=== PATIENT | male | born 1950 | race Caucasian/White ===

== ENCOUNTER 2018-04-23 10:32 | Inpatient (IN) | payer MEDICARE ==
[~2018-04-23] VITALS: Ht 195.6 cm; Wt 104.0 kg
[~2018-04-23 10:32] MED LIST: "\\\"BP PILL\\\""; BUPR100T4 PO; CARI350T PO; FLO0.4C PO; GLIP10TA11 PO; HYDR-4383 PO; METF500T7 PO; [UNRECOGNIZED DRUG - REMARK]
[2018-04-23 10:53] LABS: BASOPHILS % (AUTO) 0.5 % (0-1); EOSINOPHILS # (AUTO) 0.1 X10'3 (0-0.9); EOSINOPHILS % (AUTO) 1.6 % (0-6); HEMATOCRIT 51.8 % (42.0-52.0); HEMOGLOBIN 17.3 g/dl (14.0-17.9); LYMPHOCYTES # (AUTO) 2.1 X10'3 (1.1-4.8); LYMPHOCYTES % (AUTO) 26.2 % (21-51); MEAN CORPUSCULAR HEMOGLOBIN 29.4 PG (27.0-31.0); MEAN CORPUSCULAR HGB CONC 33.3 % (33.0-36.5); MEAN CORPUSCULAR VOLUME 88.3 FL (78-98); MEAN PLATELET VOLUME 8.6 FL (7.4-10.4); MONOCYTES # (AUTO) 0.7 X10'3 (0-0.9); MONOCYTES % (AUTO) 8.4 % (2-12); NEUTROPHILS % (AUTO) 63.3 % (42-75); PLATELET COUNT 312 X10'3 (140-440); RED BLOOD COUNT 5.87 X10'6 (4.70-6.10); RED CELL DISTRIBUTION WIDTH 13.1 % (11.5-14.5); WHITE BLOOD COUNT 7.9 X10'3 (4.5-11.0)
[2018-04-23 11:05] LABS: PARTIAL THROMBOPLASTIN TIME 29 SECONDS (22-32); PROTHROMBIN TIME 10.1 SECONDS (9.0-12.0)
[2018-04-23 11:06] LABS: ALANINE AMINOTRANSFERASE 32 U/L (12-78); ALBUMIN 4.1 G/DL (3.4-5.0); ALBUMIN/GLOBULIN RATIO 1.1 (1.1-1.5); ALKALINE PHOSPHATASE 114 IU/L (46-116); ANION GAP 11 (8-16); ASPARTATE AMINO TRANSFERASE 20 U/L (10-37); BILIRUBIN,TOTAL 0.5 MG/DL (0.1-1.0); BLOOD UREA NITROGEN 15 MG/DL (7-18); BUN/CREATININE RATIO 11.9 (5.4-32.0); CHLORIDE 100 MMOL/L (99-107); CREATININE 1.26 MG/DL (0.60-1.10); GLUCOSE 303 MG/DL (70-104); SODIUM 136 MMOL/L (135-145); TOTAL CARBON DIOXIDE 24.8 MMOL/L (24-32); TOTAL PROTEIN 7.9 G/DL (6.4-8.2); eGFR 57 ML/MIN
[2018-04-23 11:09] LABS: TROPONIN I < 0.04 NG/ML (0.0-0.05)
[2018-04-23] MEDS ORDERED: aspirin 325mg tablet PO ONE (11:10)
[2018-04-23] MEDS ORDERED: magnesium Cl slow-release 64mg tablet PO PRN (13:40)
[2018-04-23] MEDS ORDERED: MESSAGE TO PHARMACY PO ONE (13:40)
[2018-04-23] MEDS ORDERED: potassium Cl 20 mEq SR tablet PO PRN ×2 (13:40)
[2018-04-23] MEDS ORDERED: acetaminophen 325mg tablet PO PRN ×2 (13:40)
[2018-04-23] MEDS ORDERED: dextrose ORAL solution 15 GM/59 ML bottle PO PRN ×2 (13:40)
[2018-04-23] MEDS ORDERED: mag hydrox/Alum hydrox/simeth 30ml oral suspension PO PRN (13:40)
[2018-04-23] MEDS ORDERED: glucagon, human recombinant 1mg kit SUBCUT PRN (13:40)
[2018-04-23] MEDS ORDERED: dextrose 50%-water 50ml dispensing syringe IV PRN ×2 (13:40)
[2018-04-23] MEDS ORDERED: magnesium hydroxide 30ml (MOM) UD suspension PO PRN (13:40)
[2018-04-23] MEDS ORDERED: ondansetron/PF 4mg/2ml inj IV PRN (13:40)
[2018-04-23] MEDS ORDERED: potassium Cl 40MEQ/NS 500ml 500 ML IV PRN ×2 (13:40)
[2018-04-23] MEDS ORDERED: magnesium 4gm in 100ml NS 100 ML IV PRN (13:40)
[2018-04-23 14:04] LABS: HEMOGLOBIN A1C 9.4 % (4.5-6.2)
[2018-04-23] MEDS: nicotine 14mg patch - 24hr TD SCH (14:33)
[2018-04-23 18:00] VITALS: BP 132/76
[2018-04-23] MEDS: insulin Lispro (HumaLOG) vial - multi-dose SQ SCH (19:31)
[2018-04-23] MEDS ORDERED: temazepam 15mg capsule PO PRN (21:00)
[2018-04-23] MEDS: insulin glargine (Lantus) pen - multi-dose SQ SCH (21:17)
[2018-04-23 22:00] VITALS: BP 157/79
[2018-04-24] VITALS (7 sets, daily range): BP systolic 127–150; BP diastolic 61–85
[2018-04-24 05:56] LABS: HEMATOCRIT 44.7 % (42.0-52.0); HEMOGLOBIN 14.9 g/dl (14.0-17.9); MEAN CORPUSCULAR HEMOGLOBIN 29.4 PG (27.0-31.0); MEAN CORPUSCULAR HGB CONC 33.4 % (33.0-36.5); MEAN CORPUSCULAR VOLUME 88.2 FL (78-98); MEAN PLATELET VOLUME 8.8 FL (7.4-10.4); PLATELET COUNT 274 X10'3 (140-440); RED BLOOD COUNT 5.06 X10'6 (4.70-6.10); RED CELL DISTRIBUTION WIDTH 12.7 % (11.5-14.5); WHITE BLOOD COUNT 8.8 X10'3 (4.5-11.0)
[2018-04-24 06:10] LABS: ALBUMIN 3.2 G/DL (3.4-5.0); ANION GAP 11 (8-16); BLOOD UREA NITROGEN 17 MG/DL (7-18); BUN/CREATININE RATIO 15.6 (5.4-32.0); CALCIUM 8.5 MG/DL (8.5-10.1); CHLORIDE 105 MMOL/L (99-107); CHOL/HDL RATIO 9.6 (0.00-4.99); CHOLESTEROL 192 MG/DL (0-200); CREATININE 1.09 MG/DL (0.60-1.10); GLUCOSE 249 MG/DL (70-104); HDL CHOLESTEROL 20 MG/DL (35-60); LDL CHOLESTEROL 100 MG/DL (50-100); PHOSPHORUS 3.7 MG/DL (2.3-4.5); POTASSIUM 3.7 MMOL/L (3.5-5.1); SODIUM 139 MMOL/L (135-145); TOTAL CARBON DIOXIDE 22.9 MMOL/L (24-32); TRIGLYCERIDES 464 MG/DL (20-135); eGFR 67 ML/MIN
[2018-04-24] MEDS: nicotine 14mg patch - 24hr TD SCH (08:00)
[2018-04-24] MEDS: K and/or MAG REPLACEMENT MC SCH (08:00)
[2018-04-24] MEDS: aspirin 325mg tablet PO SCH (08:03)
[2018-04-24] MEDS: insulin Lispro (HumaLOG) vial - multi-dose SQ SCH ×3 (08:32→18:42)
[2018-04-24] MEDS: insulin glargine (Lantus) pen - multi-dose SQ SCH (20:57)
[2018-04-24] MEDS ORDERED: atorvastatin 20mg tablet PO SCH (21:00)
[2018-04-25 02:00] VITALS: BP 139/76
[2018-04-25 05:00] VITALS: BP 135/71
[2018-04-25 06:02] LABS: HEMATOCRIT 44.2 % (42.0-52.0); HEMOGLOBIN 14.9 g/dl (14.0-17.9); MEAN CORPUSCULAR HEMOGLOBIN 29.7 PG (27.0-31.0); MEAN CORPUSCULAR HGB CONC 33.8 % (33.0-36.5); MEAN CORPUSCULAR VOLUME 87.9 FL (78-98); MEAN PLATELET VOLUME 8.5 FL (7.4-10.4); PLATELET COUNT 258 X10'3 (140-440); RED BLOOD COUNT 5.03 X10'6 (4.70-6.10); RED CELL DISTRIBUTION WIDTH 12.7 % (11.5-14.5); WHITE BLOOD COUNT 7.1 X10'3 (4.5-11.0)
[2018-04-25 06:12] LABS: ALBUMIN 3.2 G/DL (3.4-5.0); ANION GAP 9 (8-16); BLOOD UREA NITROGEN 17 MG/DL (7-18); BUN/CREATININE RATIO 13.7 (5.4-32.0); CALCIUM 8.6 MG/DL (8.5-10.1); CHLORIDE 103 MMOL/L (99-107); CREATININE 1.24 MG/DL (0.60-1.10); GLUCOSE 237 MG/DL (70-104); MAGNESIUM 1.9 MG/DL (1.5-2.4); PHOSPHORUS 3.5 MG/DL (2.3-4.5); SODIUM 137 MMOL/L (135-145); TOTAL CARBON DIOXIDE 24.9 MMOL/L (24-32); eGFR 58 ML/MIN
[2018-04-25] MEDS ORDERED: enoxaparin 40mg/0.4ml syringe SQ SCH (08:00)
[2018-04-25] MEDS: K and/or MAG REPLACEMENT MC SCH (08:00)
[2018-04-25] MEDS: aspirin 325mg tablet PO SCH (08:53)
[2018-04-25] MEDS: nicotine 14mg patch - 24hr TD SCH (08:54)
[2018-04-25] MEDS: insulin Lispro (HumaLOG) vial - multi-dose SQ SCH (08:57)
[2018-04-25 10:00] VITALS: BP 145/73
[2018-04-25] MEDS ORDERED: FLO0.4C PO (11:30)
[2018-04-25] MEDS ORDERED: METF500T7 PO (11:30)
[2018-04-25] MEDS ORDERED: GLIP10TA11 PO (11:30)
[2018-04-25] MEDS ORDERED: ASPI81TA52 PO (11:30)
[2018-04-25] MEDS ORDERED: ATOR20TA66 PO (11:30)
[2018-04-25] MEDS ORDERED: NICO-631 TD (11:30)
== END 2018-04-25 12:50 | disposition home or self-care (01) | DRG 65 ==
LOC: ER 10:33 → ED HOLD 13:36 → ORTHO 4S 16:45
PROVIDERS: ADMIT Family Medicine; ATTEND Hospitalist
DX: I63.9 Cerebral infarction, unspecified (principal); K51.90 Ulcerative colitis, unspecified, without complications; G81.94 Hemiplegia, unspecified affecting left nondominant side; E11.22 Type 2 diabetes mellitus with diabetic chronic kidney disease; N18.9 Chronic kidney disease, unspecified; R47.81 Slurred speech; R29.810 Facial weakness; N40.0 Benign prostatic hyperplasia without lower urinary tract symptoms; Z96.653 Presence of artificial knee joint, bilateral; R47.1 Dysarthria and anarthria; F17.200 Nicotine dependence, unspecified, uncomplicated; I65.23 Occlusion and stenosis of bilateral carotid arteries; I12.9 Hypertensive chronic kidney disease with stage 1 through stage 4 chronic kidney disease, or unspecified chronic kidney disease; Z90.49 Acquired absence of other specified parts of digestive tract; Z79.82 Long term (current) use of aspirin; Z79.899 Other long term (current) drug therapy; Z79.84 Long term (current) use of oral hypoglycemic drugs; Z85.46 Personal history of malignant neoplasm of prostate; Z85.828 Personal history of other malignant neoplasm of skin; Z87.442 Personal history of urinary calculi
CPT/HCPCS: 36415; 70450; 70544; 70551; 71045; 80048; 80053; 80061; 82948; 83036; 83735; 84100; 84484; 85025; 85027; 85610; 85730; 87070; 93005; 93306; 93880; 97110; 97116; 97162; 99285; G0378; J1650; J1815

== ENCOUNTER 2022-05-11 05:29 | Day surgery (SDC) | payer MEDICARE ==
[2022-05-06 16:26] LABS: BASOPHILS # (AUTO) 0.1 X10'3 (0-0.2); BASOPHILS % (AUTO) 0.9 % (0-1); EOSINOPHILS # (AUTO) 0.2 X10'3 (0-0.9); EOSINOPHILS % (AUTO) 2.3 % (0-6); LYMPHOCYTES # (AUTO) 2.5 X10'3 (1.1-4.8); LYMPHOCYTES % (AUTO) 26.4 % (21-51); MEAN CORPUSCULAR HEMOGLOBIN 28.8 PG (27.0-31.0); MEAN CORPUSCULAR HGB CONC 32.7 g/dL (33.0-36.5); MEAN CORPUSCULAR VOLUME 87.8 FL (78-98); MEAN PLATELET VOLUME 7.8 FL (7.4-10.4); MONOCYTES # (AUTO) 0.9 X10'3 (0-0.9); MONOCYTES % (AUTO) 9.5 % (2-12); NEUTROPHILS # (AUTO) 5.7 X10'3 (1.8-7.7); NEUTROPHILS % (AUTO) 60.9 % (42-75); PRE OP HEMOGLOBIN 16.7 g/dL (14.0-17.9); PRE OP PLATELET COUNT 337 X10'3 (140-440); RED CELL DISTRIBUTION WIDTH 13.8 % (11.5-14.5)
[2022-05-06 16:52] LABS: ALBUMIN 3.6 G/DL (3.4-5.0); ALBUMIN/GLOBULIN RATIO 0.9 (1.1-1.5); ALKALINE PHOSPHATASE 117 IU/L (46-116); BLOOD UREA NITROGEN 18 MG/DL (7-18); BUN/CREATININE RATIO 14.6 (5.4-32.0); CHLORIDE 103 MMOL/L (99-107); CREATININE 1.23 MG/DL (0.60-1.10); PRE OP ALT 23 U/L (30-65); PRE OP ANION GAP 13 (8-16); PRE OP AST 14 U/L (10-37); PRE OP BILIRUB, TOTAL 0.5 MG/DL (0.0-1.0); PRE OP POTASSIUM 4.1 MMOL/L (3.4-5.1); PRE OP SODIUM 139 MMOL/L (135-145); TOTAL CARBON DIOXIDE 22.7 MMOL/L (24-32); TOTAL PROTEIN 7.6 G/DL (6.4-8.2); eGFR 58 ML/MIN
[2022-05-06 16:56] LABS: PRE OP GLUCOSE 272 MG/DL (70-104)
[~2022-05-11] VITALS: Ht 195.6 cm; Wt 107.2 kg
[2022-05-11] VITALS (12 sets, daily range): BP systolic 131–203; BP diastolic 71–104
[~2022-05-11 05:29] MED LIST changes: -"\\\"BP PILL\\\""; +ASPI-612 PO; +ATOR20TA66 PO; -BUPR100T4 PO; +BUPR150T8 PO; -CARI350T PO; +CLOP-32 PO; -FLO0.4C PO; -GLIP10TA11 PO; -HYDR-4383 PO; +INSULIN SQVAC; -METF500T7 PO; +SEMA0.25; -[UNRECOGNIZED DRUG - REMARK]; +ringers solution, lacted 1,000 ML IV SCH
[2022-05-11] MEDS ORDERED: ceFAZolin inj. 2,000 MG in dextrose 5%-water 100 ML IV ONE (05:30)
[2022-05-11] MEDS ORDERED: famotidine 20mg tablet PO ONE (05:30)
[2022-05-11] MEDS ORDERED: LIDOcaine 1% 30ml preserv. free vial ONE (06:25)
[2022-05-11] MEDS ORDERED: BUPIVAcaine 0.5% inj/PF 60 ML ONE (06:25)
[2022-05-11] MEDS ORDERED: insulin regular, human 10 units/0.1 ml syringe IV ONE (07:00)
[2022-05-11] MEDS ORDERED: neostigmine methylsulfate 1 MG/ML 10ml vial ONE (07:22)
[2022-05-11] MEDS ORDERED: desflurane 240ml liquid inh. IH ONE (07:22)
[2022-05-11] MEDS ORDERED: dexamethasone sod phosphate 10mg/ml inj ONE (07:22)
[2022-05-11] MEDS ORDERED: glycopyrrolate 0.2mg/ml inj ONE (07:22)
[2022-05-11] MEDS ORDERED: fentaNYL/PF 50MCG/1 ML 2ML syringe ONE (07:31)
[2022-05-11] MEDS ORDERED: midazolam 1 mg/ML 2ml injection ONE (07:31)
[2022-05-11] MEDS ORDERED: rocuronium 10mg/ml inj IV ONE (07:34)
[2022-05-11] MEDS ORDERED: LIDOcaine 2% (20mg/ml) 5ml vial ONE (07:34)
[2022-05-11] MEDS ORDERED: ondansetron/PF 4mg/2ml inj ONE (07:34)
[2022-05-11] MEDS ORDERED: propofol inj 20 ML IV ONE (07:34)
[2022-05-11] MEDS ORDERED: LIDOcaine 1% 30ml preserv. free vial IJ ONE (07:46)
[2022-05-11] MEDS ORDERED: BUPIVAcaine 0.5% inj/PF 30 ml vial IJ ONE (07:46)
[2022-05-11] MEDS ORDERED: morphine 2 MG/ML inj. syringe IV PRN (08:05)
[2022-05-11] MEDS ORDERED: ondansetron/PF 4mg/2ml inj IV PRN (08:05)
[2022-05-11] MEDS ORDERED: proCHLORperazine 10 MG/2 ml inj IV PRN (08:05)
[2022-05-11] MEDS ORDERED: meperidine/PF 25mg/ml syringe IV PRN ×3 (08:05)
[2022-05-11] MEDS ORDERED: morphine 4 MG/ML inj SYRINge IV PRN (08:05)
[2022-05-11] MEDS ORDERED: ringers solution, lacted 1,000 ML IV SCH (08:05)
[2022-05-11] MEDS ORDERED: acetaminophen 1,000mg/100ml IV 100 ML IV ONE (08:38)
[2022-05-11] MEDS ORDERED: ePHEDrine 50MG/ML INJ. ONE (08:40)
--- NOTE | 2022-05-11 09:00 | NUR ---
Received from OR via BED, accompanied by Anesthesiologist and report given by Anesthesiologist. PATIENT WAKING UP, NO S/S OF PAIN, V/S STABLE BUT HTN SEE EMAR, SCD ON, 20G TO RUE, ABDOMEN LAP SITE CLEAN W/ NO S/S OF COMPLICATIONS
[2022-05-11] MEDS ORDERED: labetalol 20mg/4ml (5mg/ml) syringe IV PRN (09:05)
[2022-05-11] MEDS ORDERED: labetalol 20mg/4ml (5mg/ml) syringe IV ONE (09:06)
[2022-05-11] MEDS ORDERED: oxyCODONE/APAP 5-325mg tablet PO PRN (09:20)
--- NOTE | 2022-05-11 10:40 | NUR ---
PATIENT A&OX4, DENIES PAIN, V/S STABLE BUT HTN RESOLVED, SCD OFF, 20G TO RUE D/C, ABDOMEN LAP SITE CLEAN W/ NO S/S OF COMPLICATIONS. I HAVE REVIEWED D/C INSTRUCTIONS WITH PATIENT and they have verbalized understanding patient d/c home with all belongings and family gave transport home.
== END 2022-05-11 10:40 | disposition home or self-care (01) ==
LOC: PAS 05:29
PROVIDERS: ATTEND Surgery
DX: K40.90 Unilateral inguinal hernia, without obstruction or gangrene, not specified as recurrent (principal); K42.9 Umbilical hernia without obstruction or gangrene; E11.9 Type 2 diabetes mellitus without complications; F32.A Depression, unspecified; K21.9 Gastro-esophageal reflux disease without esophagitis; K51.90 Ulcerative colitis, unspecified, without complications; F41.9 Anxiety disorder, unspecified; M19.90 Unspecified osteoarthritis, unspecified site; F10.10 Alcohol abuse, uncomplicated; Z88.2 Allergy status to sulfonamides; Z98.890 Other specified postprocedural states; Z96.653 Presence of artificial knee joint, bilateral; Z87.891 Personal history of nicotine dependence; Z82.49 Family history of ischemic heart disease and other diseases of the circulatory system; Z83.49 Family history of other endocrine, nutritional and metabolic diseases; Z82.0 Family history of epilepsy and other diseases of the nervous system; Z79.82 Long term (current) use of aspirin; Z79.4 Long term (current) use of insulin; Z79.899 Other long term (current) drug therapy; Z85.46 Personal history of malignant neoplasm of prostate; Z90.49 Acquired absence of other specified parts of digestive tract; Z80.0 Family history of malignant neoplasm of digestive organs; Z83.3 Family history of diabetes mellitus; Z82.3 Family history of stroke
CPT/HCPCS: 36415; 49585; 49650; 80053; 82948; 85025; 93005; C1781; J0131; J0690; J1100; J1815; J2250; J2405; J2704; J2710; J3010; J3490; J7030; J7060; J7120; S0020; Z7506; Z7508; Z7512; A4215; A4618